=== PATIENT | female | born 1960 | race Caucasian/White ===

== ENCOUNTER → 2016-12-11 | Day surgery (SDC) | payer BC ==
[~2016-12-11] MED LIST: Lactated Ringers 1,000 ML IV SCH; Propofol 200 MG/20 ML SDV IV ONE
[2016-12-11 12:14] VITALS: BP 124/72
--- NOTE | 2016-12-14 07:40 | OR ---
DATE OF OPERATION: 12/11/2016 PREOPERATIVE DIAGNOSIS: POSITIVE COLOGUARD. POSTOPERATIVE DIAGNOSIS: 1. DISTAL ASCENDING COLON MASS. 2. TUBULAR ADENOMA, RECTOSIGMOID JUNCTION. 3. MINIMAL SIGMOID DIVERTICULOSIS. SURGEON: Cristofer Pacheco MD PROCEDURE: FULL LENGTH COLONOSCOPY WITH BIOPSIES X4, POLYP REMOVAL X1. ANESTHESIA: MACHINERY MOVER due to anxiety. COMPLICATIONS: None. SPECIMEN: 1. Biopsy x4 of large villous lesion, distal ascending colon. 2. Tubular adenoma in the rectosigmoid junction. FINDINGS: 1. Full-length colonoscopy. 2. Villous mass, distal ascending colon. 3. Small tubular adenoma, distal sigmoid colon. 4. Mild sigmoid diverticulosis. RECOMMENDATIONS: The patient will need surgical consultation for potential removal versus right hemicolectomy. Pending pathology. INDICATIONS: The patient apparently had a failed colonoscopy 10 years ago. She recently had a positive Cologuard at home, and Dr. Renae sent her for colonoscopy. DESCRIPTION OF PROCEDURE: The patient was prepped and draped, placed in the left lateral decubitus position. A lubricated Olympus colonoscope was inserted with relative ease advanced to the cecum. The patient was very tortuous, but scope passes easily where we directly visualize the ileocecal valve and appendiceal orifice. The bowel prep was fine. Upon withdrawal of the scope, the cecum and proximal ascending colon were benign. Near the hepatic flexure and still in the ascending colon, the patient has a large villous lesion, friable and unresectable with the scope, it was biopsied four times. There was no mass effect of this, but it is very broad-based and difficult to assess with the colonoscope. The rest of the ascending, transverse, and descending colons were benign. The patient does have a few scattered diverticula in the sigmoid area, very minimal in severity. No other signs of bleeding, vasculitis, colitis were seen in the left colon at the most distal part of the sigmoid colon near the junction with the rectum. The patient had a small tubular adenoma removed in its entirety with cold forceps biopsy x3. The rectal vault itself was unremarkable. Retroflexion of scope in the rectum showed no anal lesions. Air was then suctioned, and scope was removed without complication. NADEEN/BRONSON /[id number]
== END ==
LOC: CC.SDS 10:25
PROVIDERS: ATTEND Family Medicine
DX: D12.5 Benign neoplasm of sigmoid colon (principal); D12.2 Benign neoplasm of ascending colon; K57.30 Diverticulosis of large intestine without perforation or abscess without bleeding; M19.90 Unspecified osteoarthritis, unspecified site; E78.5 Hyperlipidemia, unspecified; E55.9 Vitamin D deficiency, unspecified; Z88.1 Allergy status to other antibiotic agents; Z79.899 Other long term (current) drug therapy; Z90.710 Acquired absence of both cervix and uterus; Z98.890 Other specified postprocedural states
CPT/HCPCS: 45380; J2704; J7120